=== PATIENT | male | born 1960 | race African-American/Black ===

== ENCOUNTER 2018-11-12 17:43 | Emergency (ER) | payer BC ==
[~2018-11-12] VITALS: Ht 175.3 cm; Wt 99.1 kg
[~2018-11-12 17:43] MED LIST: NAPROSYN500 MG PO; PENICILLN VK500 MG OR
[2018-11-12] MEDS ORDERED: LOSARTAN/HCT1 TA2 PO (17:54)
[2018-11-12 18:53] LABS: HEMATOCRIT 42.5 % (39.0-50.0); HEMOGLOBIN 14.2 g/dl (14.0-18.0); IMMATURE GRANULOCYTES 0.2 % (0.0-5.0); MEAN CELL VOLUME 85.7 fL CALC (80.0-100.0); MEAN CORPUSCULAR HGB 28.6 pG CALC (26.0-32.0); MEAN CORPUSCULAR HGB CONC 33.4 g/L CALC (32.0-36.0); NEUT# 3.78 thou/uL (1.82-7.42); RED BLOOD COUNT 4.96 mill/uL (4.70-6.10); RED CELL DISTRI WIDTH 14.5 % (11.5-15.5)
[2018-11-12 19:04] LABS: ALBUMIN 4.2 g/dL (3.2-5.0); ALKALINE PHOSPHATASE 103 u/l (38-126); ANION GAP 16 (6-22 (CALC)); BILIRUBIN, TOTAL 0.7 mg/dL (0.0-1.4); BUN 15 mg/dL (9-20); BUN/CREATININE RATIO 16 (12-20 (CALC)); CARBON DIOXIDE 22 mmol/l (22-30); CHLORIDE 111 mmol/l (95-108); GFR > 60 ML/MIN (>=60 (CALC)); GFR FOR AFR.AMER. > 60 ML/MIN (>=60 (CALC)); POTASSIUM 3.8 mmol/l (3.5-5.1); SGOT/AST 46 u/l (17-59); SODIUM 145 mmol/l (137-146); TOTAL PROTEIN 7.1 g/dL (6.3-8.2)
[2018-11-12] MEDS ORDERED: BENADRYL 50MG C50 MG PO (19:53)
[2018-11-12] MEDS ORDERED: PEPCID20 MG PO (19:53)
[2018-11-12] MEDS ORDERED: MEDDOSEPAK PO (19:53)
[2018-11-12] MEDS ORDERED: CEPHALEXIN500 M1 PO (20:19)
[2018-11-12 20:20] VITALS: BP 192/92
== END 2018-11-12 20:20 | disposition home or self-care (01) | DRG 916 ==
LOC: ED 17:43
PROVIDERS: Emergency Medicine
DX: T78.40XA Allergy, unspecified, initial encounter (principal); T78.3XXA Angioneurotic edema, initial encounter; J32.9 Chronic sinusitis, unspecified

== ENCOUNTER 2019-03-14 13:28 | Emergency (ER) | payer BC ==
[~2019-03-14] VITALS: Ht 175.3 cm; Wt 94.1 kg
[~2019-03-14 13:28] MED LIST changes: +BENADRYL 50MG C50 MG PO; +CEPHALEXIN500 M1 PO; +LOSARTAN/HCT1 TA2 PO; +MEDDOSEPAK PO; +PEPCID20 MG PO
[2019-03-14 15:40] VITALS: BP 174/85
[2019-03-14] MEDS ORDERED: ULTRAM50 M1 PO (15:47)
[2019-03-14] MEDS ORDERED: CEPHALEXIN500 M1 PO (15:47)
[2019-03-15] MEDS ORDERED: BACTRIM DS1 TAB PO (14:32)
== END 2019-03-14 15:59 | disposition home or self-care (01) | DRG 605 ==
LOC: ED 13:28
DX: S51.811A Laceration without foreign body of right forearm, initial encounter (principal); L08.9 Local infection of the skin and subcutaneous tissue, unspecified; S50.01XA Contusion of right elbow, initial encounter; I10 Essential (primary) hypertension; W01.0XXA Fall on same level from slipping, tripping and stumbling without subsequent striking against object, initial encounter; Y92.009 Unspecified place in unspecified non-institutional (private) residence as the place of occurrence of the external cause

== ENCOUNTER 2019-03-15 14:15 | Emergency (ER) | payer BC ==
[~2019-03-15] VITALS: Ht 175.3 cm; Wt 94.0 kg
[~2019-03-15 14:15] MED LIST changes: +ULTRAM50 M1 PO
[2019-03-15] MEDS ORDERED: BACTRIM DS1 TAB PO (14:32)
[2019-03-15 14:46] VITALS: BP 138/77
== END 2019-03-15 14:46 | disposition home or self-care (01) | DRG 950 ==
LOC: ED 14:15
DX: S51.811D Laceration without foreign body of right forearm, subsequent encounter (principal); L08.9 Local infection of the skin and subcutaneous tissue, unspecified; W17.89XD Other fall from one level to another, subsequent encounter; I10 Essential (primary) hypertension

== ENCOUNTER 2021-05-21 22:33 | Emergency (ER) | payer OTHER, BC ==
[~2021-05-21] VITALS: Ht 175.3 cm; Wt 89.5 kg
[~2021-05-21 22:33] MED LIST changes: +BACTRIM DS1 TAB PO
[2021-05-21 23:57] VITALS: BP 174/79
== END 2021-05-22 00:05 | disposition home or self-care (01) | DRG 563 ==
LOC: ED 22:33
DX: S39.012A Strain of muscle, fascia and tendon of lower back, initial encounter (principal); S80.11XA Contusion of right lower leg, initial encounter; I10 Essential (primary) hypertension; V49.40XA Driver injured in collision with unspecified motor vehicles in traffic accident, initial encounter

== ENCOUNTER 2023-01-07 10:05 | Emergency (ER) | payer OTHER, BC ==
[2023-01-07] VITALS (7 sets, daily range): BP systolic 130–147; BP diastolic 64–84
[~2023-01-07] VITALS: Ht 175.3 cm; Wt 90.3 kg
[2023-01-07 12:41] LABS: BASO% 1.1 % (0-3); EOS% 2.5 % (0-8); HEMATOCRIT 38.5 % (39.0-50.0); HEMOGLOBIN 12.6 g/dl (14.0-18.0); IMMATURE GRANULOCYTES 0.2 % (0.0-5.0); LYMPH% 32.4 % (15-41); MEAN CELL VOLUME 81.7 fL CALC (80.0-100.0); MEAN CORPUSCULAR HGB 26.8 pG CALC (26.0-32.0); MEAN CORPUSCULAR HGB CONC 32.7 g/dL CAL (32.0-36.0); MONO% 12.2 % (2-13); NEUT# 3.29 thou/uL (1.82-7.42); NEUT% 51.6 % (42-76); RED BLOOD COUNT 4.71 mill/uL (4.70-6.10); RED CELL DISTRI WIDTH 14.8 % (11.5-15.5)
[2023-01-07 12:54] LABS: ALBUMIN 4.1 g/dL (3.2-5.0); BILIRUBIN, TOTAL 0.7 mg/dL (0.2-1.3); CREATININE 1.8 mg/dL (0.7-1.3); POTASSIUM 3.3 mmol/l (3.5-5.1); TOTAL PROTEIN 7.4 g/dL (6.3-8.2)
== END 2023-01-07 13:37 | disposition short-term general hospital (02) | DRG 87 ==
LOC: ED 10:05
PROVIDERS: Family Medicine
DX: S06.300A Unspecified focal traumatic brain injury without loss of consciousness, initial encounter (principal); V40.5XXA Car driver injured in collision with pedestrian or animal in traffic accident, initial encounter; I10 Essential (primary) hypertension

== ENCOUNTER 2023-04-07 13:26 | Observation (INO) | payer BC ==
[~2023-04-07] VITALS: Ht 175.3 cm; Wt 86.0 kg
[2023-04-07] VITALS (15 sets, daily range): BP systolic 74–121; BP diastolic 46–67
[2023-04-07] MEDS ORDERED: ATORVASTATIN CA40 MG PO (13:51)
[2023-04-07] MEDS ORDERED: AMLODIPINE BESY10 MG PO (13:51)
[2023-04-07 14:07] LABS: BASO% 1.2 % (0-3); EOS% 2.2 % (0-8); HEMOGLOBIN 10.9 g/dl (14.0-18.0); IMMATURE GRANULOCYTES 0.2 % (0.0-5.0); LYMPH% 28.8 % (15-41); MEAN CELL VOLUME 86.2 fL CALC (80.0-100.0); MEAN CORPUSCULAR HGB 28.5 pG CALC (26.0-32.0); MONO% 11.6 % (2-13); NEUT# 3.37 thou/uL (1.82-7.42); RED BLOOD COUNT 3.83 mill/uL (4.70-6.10); RED CELL DISTRI WIDTH 15.9 % (11.5-15.5)
[2023-04-07 14:18] LABS: ALKALINE PHOSPHATASE 89 u/l (38-126); ANION GAP 16 (6-22 (CALC)); BILIRUBIN, TOTAL 0.7 mg/dL (0.2-1.3); BUN 44 mg/dL (8-23); BUN/CREATININE RATIO 14 (12-20 (CALC)); CARBON DIOXIDE 23 mmol/l (22-30); CHLORIDE 104 mmol/l (95-108); CREATININE 3.1 mg/dL (0.7-1.3); GFR FOR AFR.AMER. 25 ML/MIN (>=60 (CALC)); GFR OTHER RACES 21 ML/MIN (>=60 (CALC)); POTASSIUM 3.7 mmol/l (3.5-5.1); SGOT/AST 108 u/l (19-48); SODIUM 139 mmol/l (137-146); TOTAL PROTEIN 6.9 g/dL (6.3-8.2)
[2023-04-07 15:09] LABS: URINE BILIRUBIN - DIPSTICK NEGATIVE (NEGATIVE); URINE BLOOD DIPSTICK NEGATIVE (NEGATIVE); URINE COLOR YELLOW; URINE GLUCOSE - DIPSTICK NEGATIVE (NEGATIVE); URINE KETONE NEGATIVE (NEGATIVE); URINE LEUK ESTERASE NEGATIVE (NEGATIVE); URINE PROTEIN - DIPSTICK NEGATIVE (NEG-TRACE); URINE UROBILINOGEN - DIPSTICK 0.2 E.U./dL (0.2)
[2023-04-07 15:11] LABS: URINE NITRITE - DIPSTICK NEGATIVE (Negative)
[2023-04-08] VITALS (7 sets, daily range): BP systolic 119–138; BP diastolic 63–69
[2023-04-08 05:12] LABS: BASO% 0.7 % (0-3); EOS% 2.4 % (0-8); HEMATOCRIT 31.1 % (39.0-50.0); HEMOGLOBIN 10.4 g/dl (14.0-18.0); IMMATURE GRANULOCYTES 0.2 % (0.0-5.0); LYMPH% 27.8 % (15-41); MEAN CORPUSCULAR HGB 28.4 pG CALC (26.0-32.0); MEAN CORPUSCULAR HGB CONC 33.4 g/dL CAL (32.0-36.0); MONO% 15.6 % (2-13); NEUT# 2.88 thou/uL (1.82-7.42); NEUT% 53.3 % (42-76); RED BLOOD COUNT 3.66 mill/uL (4.70-6.10); RED CELL DISTRI WIDTH 15.9 % (11.5-15.5)
[2023-04-08 05:30] LABS: ALBUMIN 3.5 g/dL (3.2-5.0); MAGNESIUM 1.4 mg/dL (1.6-2.3); POTASSIUM 3.4 mmol/l (3.5-5.1); TOTAL PROTEIN 6.3 g/dL (6.3-8.2)
[2023-04-08 05:31] LABS: BILIRUBIN, TOTAL 1.2 mg/dL (0.2-1.3); CREATININE 1.7 mg/dL (0.7-1.3)
== END 2023-04-08 13:07 | disposition home or self-care (01) | DRG 684 ==
LOC: ED 13:26 → MS2 15:36
PROVIDERS: Family Medicine; ADMIT Internal Medicine; ATTEND Internal Medicine
DX: N17.9 Acute kidney failure, unspecified (principal); I10 Essential (primary) hypertension; E78.5 Hyperlipidemia, unspecified; Z20.822 Contact with and (suspected) exposure to COVID-19
CPT/HCPCS: G0378; J3475